=== PATIENT | female | born 1945 | race Caucasian/White ===

== ENCOUNTER → 2022-10-07 | Outpatient (CLI) | payer OTHER ==
--- NOTE | 2022-10-07 14:17 | Diagnostic Imaging Report ---
EXAMINATION: Left knee radiographs, 4 views. COMPARISON: None. HISTORY: 77-year-old female, left knee pain. FINDINGS: The left patella is normally positioned. There is severe patellofemoral compartment joint space loss and moderate to severe lateral compartment joint space loss. There are tricompartmental osteophytes. There is no left knee joint effusion. There is no identified acute fracture. IMPRESSION: 1. 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 Dictated by: Dictated on workstation # [id number]
== END ==
LOC: ORTHO 10:45
PROVIDERS: ATTEND Orthopaedic Surgery
DX: M17.12 Unilateral primary osteoarthritis, left knee (principal)
CPT/HCPCS: 20610; 73564; G0463